=== PATIENT | female | born 1955 | race Caucasian/White ===

== ENCOUNTER 2017-09-26 07:53 | Day surgery (SDC) | payer BC ==
[2017-09-26] MEDS ORDERED: PROPOFOL 20 ML ONE ×2 (08:19)
[2017-09-26 08:29] VITALS: BMI 22.6
[2017-09-26 10:06] VITALS: TEMP 97.6
[2017-09-26 10:38] VITALS: BP 100/59; PULSE 66
--- NOTE | 2017-10-01 09:27 | PATH ---
Surgical Pathology Report Patient Name: [facility]UAR [facility]OS [facility]. Rec. #: [id number] /Age/Gender: 1955 (Age: 62) / F Account: [id number] Location: [facility]-ENDOSCOPY Taken: 09/26/2017 Received: 09/26/2017 Reported: 10/01/2017 Physicians: Dm Gustafson M.D. Specimen(s) Received BX SIGMOID Clinical History Preoperative diagnosis: Rule out colon cancer Postoperative diagnosis: polyp Final Diagnosis SIGMOID COLON, BIOPSY: HYPERPLASTIC POLYP. Electronically Signed Isabella Lao M.D. Gross Description Received in formalin, labeled "sigmoid" is a christine, irregular portion of soft tissue measuring 0.5 cm. in greatest dimension. The specimen is submitted in toto in one cassette. 09/27/201709/27/2017
== END 2017-09-26 10:45 | disposition home or self-care (01) ==
LOC: FASU-ENDO 07:53
PROVIDERS: ATTEND Internal Medicine Gastroenterology
PROC: 0DBN8ZX Excision of Sigmoid Colon, Via Natural or Artificial Opening Endoscopic, Diagnostic (ICD-10-PCS; principal; 2017-09-26 09:31)
DX: Z86.010 Personal history of colon polyps (principal); D12.5 Benign neoplasm of sigmoid colon; K57.30 Diverticulosis of large intestine without perforation or abscess without bleeding